=== PATIENT | female | born 1960 | race Caucasian/White ===

== ENCOUNTER → 2017-06-24 | Outpatient (CLI) | payer OTHER | LOC: BRMIMAGING 15:05 | PROVIDERS: ATTEND Family Medicine | DX: Z12.31 Encounter for screening mammogram for malignant neoplasm of breast (principal) | CPT/HCPCS: G0202 ==

== ENCOUNTER → 2018-01-28 | Outpatient (CLI) | payer OTHER | LOC: BRMIMAGING 16:04 | PROVIDERS: ATTEND Anesthesiology Pain Medicine | DX: M43.13 Spondylolisthesis, cervicothoracic region (principal) | CPT/HCPCS: 72052-PO ==

== ENCOUNTER 2018-07-07 09:09 | Outpatient (CLI) | payer OTHER ==
[2018-07-07] MEDS ORDERED: PROTAMINE SULFATE 50 MG/5 ML VIAL IVP PRN (09:12)
[2018-07-07] MEDS ORDERED: GLUCAGON HCL 1 MG VIAL IVP PRN (09:12)
[2018-07-07] MEDS ORDERED: HEPARIN 10,000 UNIT/10 ML MDV (1,000 UNIT/ML) IVP PRN (09:12)
[2018-07-07] MEDS ORDERED: NALOXONE HCL 0.4 MG/ML INJ IVP PRN (09:12)
[2018-07-07] MEDS ORDERED: fentaNYL 100 MCG/2 ML INJ IVP PRN (09:12)
[2018-07-07] MEDS ORDERED: FLUMAZENIL 0.5 MG/5 ML MDV IVP PRN (09:12)
[2018-07-07] MEDS ORDERED: MIDAZOLAM 2 MG/2 ML VIAL IVP PRN (09:12)
[2018-07-07] MEDS ORDERED: ALTEPLASE 2 MG VIAL IVP PRN (09:12)
[2018-07-07] MEDS ORDERED: NS 1,000 ML IV SCH (09:15)
[2018-07-07] MEDS ORDERED: LIDOCAINE 1% 300 MG/30 ML SDV ONE (10:16)
--- NOTE | 2018-07-07 11:15 | PDRADPN ---
Radiology Procedure Note Date of Procedure: 07/07/18 Radiologist: Pal Manjarrez Anesthesia: IV Sedation, Local (Specify) (Lidocaine 1%) Inf/Abcess present in the surg proc area at time of surgery?: No Depth: Organ Space EBL: Minimal Specimen(s): 20 ga core x 3
--- NOTE | 2018-07-07 11:15 | PDRADPRE ---
Radiology History & Physical Indication for procedure: liver disease Home medications: B-12 2,000 iunits 07/04/18 [Last Taken 07/06/18] B-Complex Tablet 07/04/18 [Last Taken 07/06/18] BIOTIN 2,000 iunits 07/04/18 [Last Taken 07/06/18] Celebrex 200 mg PO DAILY 07/04/18 [Last Taken 07/07/18 07:00] Fentanyl 25 - 50 mcg Q2D 07/04/18 [Last Taken 07/06/18] Finasteride 1.25 mg DAILY 07/04/18 [Last Taken 07/06/18] Levothyroxine 100 mcg DAILY 07/04/18 [Last Taken 07/06/18] Lidocaine 5% 07/04/18 [Last Taken 07/06/18] Magnesium 375 mg 07/04/18 [Last Taken 07/06/18] Omeprazole 40 mg PO DAILY 07/04/18 [Last Taken 07/06/18] Spironolactone 50 mg PO BID 07/04/18 [Last Taken 07/07/18 06:30] Stadol 1 - 2 spray PRN PRN 07/04/18 [Last Taken 07/07/18 08:00] Symproic 0.2 mg DAILY 07/04/18 [Last Taken 07/07/18 0630] Trintellix 20 mg PO DAILY 07/04/18 [Last Taken 07/07/18 06:30] Vitamin D3 2,000 iunits 07/04/18 [Last Taken 07/06/18] buPROPion 150 mg PO DAILY 07/04/18 [Last Taken 07/07/18 06:30] Allergies/Adverse Reactions: atorvastatin [From Lipitor] Allergy (Verified 07/07/18 09:18) Mental status: A&Ox3 Heart exam: regular rate and rhythm Lungs exam: clear to auscultation Mallampati Score: Class 1
[2018-07-07] MEDS ORDERED: ONDANSETRON 4 MG/2 ML VIAL IVP PRN (11:16)
[2018-07-07] MEDS ORDERED: oxyCODONE IR 5 MG TAB PO PRN (11:16)
--- NOTE | 2018-07-07 11:16 | PDPROPOC ---
Sedation Plan of Care Sedation Plan of Care: vital signs stable, mental status noted, patient educated of risks, benefits, alternatives, patient can tolerate sedation ASA Classification: ASA 1 Planned drugs: fentanyl, midazolam Mallampati Score: Class 1 Mallampati Reference Image: Patient passed 3-3-2 rule?: Yes
[2018-07-07 14:55] VITALS: BP 126/72
== END 2018-07-07 14:50 | disposition home or self-care (01) ==
LOC: FIMAGING 09:09
PROVIDERS: ATTEND Internal Medicine
PROC: 0FB03ZX Excision of Liver, Percutaneous Approach, Diagnostic (ICD-10-PCS; principal; 2018-07-07 11:35)
DX: K73.2 Chronic active hepatitis, not elsewhere classified (principal)
CPT/HCPCS: J2250; J2310; J3010